=== PATIENT | female | born 2000 | race Hispanic/Latino ===

== ENCOUNTER 2024-10-27 18:52 | Emergency (ER) | payer BC ==
[2024-10-27] MEDS ORDERED: diphenhydrAMINE 25 MG CAP ONE (20:27)
[2024-10-27] MEDS ORDERED: Acetaminophen 325 MG TAB ONE (20:27)
[2024-10-27] MEDS ORDERED: Metoclopramide HCl 10 MG TAB ONE (20:31)
== END 2024-10-27 21:38 | disposition home or self-care (01) ==
LOC: ERS 18:52
DX: R55 Syncope and collapse (principal); S09.90XA Unspecified injury of head, initial encounter; W10.9XXA Fall (on) (from) unspecified stairs and steps, initial encounter
CPT/HCPCS: 70450; 72125